=== PATIENT | female | born 2000 | race Caucasian/White ===

== ENCOUNTER 2018-12-27 23:26 | Emergency (ER) | payer MEDICAID ==
[~2018-12-27] VITALS: Ht 160 cm; Wt 65.0 kg
[2018-12-27 23:35] VITALS: BP 107/80
[2018-12-28] MEDS ORDERED: HYDROcodone/acetaminophen 5mg/325mg tablet PO ONE (00:15)
[2018-12-28] MEDS ORDERED: ketorolac trometh inj. 60 MG/2 ML VIAL IM ONE (00:15)
== END 2018-12-28 00:59 | disposition home or self-care (01) ==
LOC: ER 23:27
DX: N94.10 Unspecified dyspareunia (principal)
CPT/HCPCS: 96372; 99283; J1885; 80053; 81003; 81025; 83690; 85025

== ENCOUNTER 2021-09-13 17:31 | Emergency (ER) | payer MEDICAID ==
[~2021-09-13] VITALS: Ht 167.6 cm; Wt 59.0 kg
[2021-09-13 17:52] VITALS: BP 102/47
[2021-09-13 18:31] LABS: URINE HCG NEGATIVE (NEG)
[2021-09-13 18:33] LABS: CLARITY,URINE CLOUDY (Clear); COLOR,URINE YELLOW (Yellow); GLUCOSE, URINE NEGATIVE (Neg); KETONES,URINE 15 mg/dl (Neg); LEUKOCYTE ESTERASE ,URINE MODERATE (Neg); NITRITES, URINE POSITIVE (Neg); OCCULT BLOOD,URINE SMALL (Neg); PROTEIN,URINE TRACE mg/dl (Neg); UROBILINOGEN,URINE 0.2 E.U/dL (0.2-1.0)
[2021-09-13 18:34] LABS: BASOPHILS % (AUTO) 0.4 % (0-1); EOSINOPHILS % (AUTO) 0.1 % (0-6); HEMATOCRIT 40.2 % (35.0-45.0); HEMOGLOBIN 13.3 g/dl (12.0-16.0); LYMPHOCYTES # (AUTO) 1.7 X10'3 (1.1-4.8); LYMPHOCYTES % (AUTO) 14.4 % (21-51); MEAN CORPUSCULAR HEMOGLOBIN 29.8 PG (27.0-31.0); MEAN CORPUSCULAR HGB CONC 33.2 g/dL (33.0-36.5); MEAN CORPUSCULAR VOLUME 89.8 FL (78-98); MEAN PLATELET VOLUME 7.4 FL (7.4-10.4); MONOCYTES # (AUTO) 0.6 X10'3 (0-0.9); MONOCYTES % (AUTO) 4.8 % (2-12); NEUTROPHILS # (AUTO) 9.5 X10'3 (1.8-7.7); NEUTROPHILS % (AUTO) 80.3 % (42-75); PLATELET COUNT 283 X10'3 (140-440); RED BLOOD COUNT 4.47 X10'6 (4.20-5.60); RED CELL DISTRIBUTION WIDTH 13.3 % (11.5-14.5); WHITE BLOOD COUNT 11.8 X10'3 (4.5-11.0)
[2021-09-13 18:42] LABS: UA COLLECTION TYPE CLN CATCH MIDSTREAM
[2021-09-13 18:43] LABS: ALANINE AMINOTRANSFERASE 26 U/L (12-78); ALBUMIN 3.8 G/DL (3.4-5.0); ALBUMIN/GLOBULIN RATIO 0.8 (1.1-1.5); ALKALINE PHOSPHATASE 68 IU/L (46-116); ANION GAP 6 (8-16); ASPARTATE AMINO TRANSFERASE 17 U/L (10-37); BILIRUBIN,TOTAL 0.6 MG/DL (0.1-1.0); BLOOD UREA NITROGEN 12 MG/DL (7-18); BUN/CREATININE RATIO 11.2 (6.6-38.0); CALCIUM 8.9 MG/DL (8.5-10.1); CHLORIDE 103 MMOL/L (99-107); CREATININE 1.07 MG/DL (0.40-0.90); GLUCOSE 121 MG/DL (70-104); LIPASE < 50 U/L (73-393); POTASSIUM 3.5 MMOL/L (3.5-5.1); SODIUM 138 MMOL/L (135-145); TOTAL CARBON DIOXIDE 28.6 MMOL/L (24-32); TOTAL PROTEIN 8.7 G/DL (6.4-8.2); eGFR 64 ML/MIN
[2021-09-13 18:45] LABS: BACTERIA,URINE 3+ /HPF (Neg); SQUAMOUS EPITHELIAL CELL,UR FEW /LPF (FEW); WBC CLUMPS,URINE MODERATE /HPF (NEGATIVE); WBC,URINE TNTC /HPF (0-4)
[2021-09-14] MEDS ORDERED: NO HOME MEDS (05:37)
[2021-09-15] MEDS ORDERED: ACET-1008 PO (10:45)
[2021-09-15] MEDS ORDERED: CIPR-202 PO (10:45)
== END 2021-09-13 19:04 | disposition left against medical advice (07) ==
LOC: ER 17:32
DX: R10.9 Unspecified abdominal pain (principal); R11.2 Nausea with vomiting, unspecified; Z53.21 Procedure and treatment not carried out due to patient leaving prior to being seen by health care provider
CPT/HCPCS: 36415; 80053; 81001; 81025; 83690; 85025; 87088